=== PATIENT | female | born 2000 | race Caucasian/White ===

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

== ENCOUNTER 2019-02-03 07:50 | Emergency (ER) | payer SELFPAY ==
[~2019-02-03] VITALS: Wt 49.9 kg
--- NOTE | ~2019-02-03 | EKG ---
[place], [place] ELECTROCARDIOGRAM REPORT NAME: ERASMO GUAN UNIT #: [id number] ROOM: DOCTOR: DENNIS DRAFT REPORT BIRTHDATE: [birth year] [facility] Test Date: 2019-02-03 Test Time: 08:20:53 Pat Name: ERASMO GUAN Department: Room: Gender: F Manager Commodities: Diana Topete : 2000 Requested By: ELIZ BAKER Order Number: [id number] Reading MD: Alexandr Roque Measurements Intervals [place] Rate: 84 P: 72 MO: 125 QRS: 87 QRSD: 88 T: 40 QT: 333 QTc: 394 Interpretive Statements Sinus rhythm Baseline wander in lead(s) V4 Electronically Signed On 02-04-2019 9:30:50 PDT by Alexandr Roque CM:EKGRPT:ELECTROCARDIOGRAM REPORT 9 9 ELIZ KO DRAFT REPORT ELIZ BAKER DO
[~2019-02-03 07:50] MED LIST changes: +CEPHALEXIN500 M1 PO; +CIPRO250 MG PO; +SEPTDS PO
[2019-02-03 08:35] LABS: BASO % 0.2 % (0.0-1.0); EOS # 0.1 10*3/uL (0.0-0.4); EOS % 1.4 % (1.0-4.0); HEMATOCRIT 39.2 % (37.0-47.0); HEMOGLOBIN 12.4 g/dl (12.0-16.0); LYMPH # 1.2 10*3/uL (1.3-4.4); LYMPH % 12.6 % (27.0-41.0); MEAN CELL VOLUME 98.5 fl (81.0-99.0); MEAN CORPUSCULAR HGB 31.2 pg (27.0-31.0); MEAN CORPUSCULAR HGB CONC 31.6 g/dl (33.0-37.0); MEAN PLATELET VOLUME 8.7 fl (9.6-12.3); MONO # 0.6 10*3/uL (0.1-1.0); MONO % 6.8 % (3.0-9.0); NEUT # 7.2 10*3/uL (2.3-7.9); NEUT % 78.7 % (47.0-73.0); PLATELET COUNT AUTOMATED 296 10*3/uL (130-400); RED BLOOD COUNT 3.98 10*6/uL (4.10-5.10); RED CELL DISTRI WIDTH 13.6 % (0-14.5); WHITE BLOOD COUNT 9.1 10*3/uL (4.8-10.8)
[2019-02-03 08:44] LABS: ALBUMIN 3.6 gm/dl (3.1-4.5); ALKALINE PHOSPHATASE 63 U/L (45-117); BUN 8 mg/dl (7-24); CHLORIDE 100 mmol/L (98-107); CREATININE 0.79 mg/dL (0.55-1.02); LIPASE 75 U/L (73-393); POTASSIUM 3.4 mmol/L (3.5-5.1); SGOT/AST 21 IU/L (3-35); SGPT/ALT 17 U/L (12-78); SODIUM 138 mmol/L (136-145); TOTAL PROTEIN 8.2 gm/dL (6.4-8.2)
[2019-02-03 08:45] LABS: BETA-HCG, QUANT < 1.0 mIU/mL (1-3); TROPONIN I < 0.015 ng/ml (<0.045)
[2019-02-03] MEDS ORDERED: PREDNISONE50 MG PO (13:14)
== END 2019-02-03 13:38 | disposition home or self-care (01) ==
LOC: ED 07:50
PROVIDERS: Emergency Medicine
DX: R53.1 Weakness (principal); R20.0 Anesthesia of skin; R20.2 Paresthesia of skin; R79.1 Abnormal coagulation profile; G43.909 Migraine, unspecified, not intractable, without status migrainosus

== ENCOUNTER 2019-05-07 17:28 | Emergency (ER) | payer SELFPAY ==
[~2019-05-07] VITALS: Ht 165.1 cm; Wt 67.1 kg
--- NOTE | ~2019-05-07 | EKG ---
[place], [place] ELECTROCARDIOGRAM REPORT NAME: ERASMO GUAN UNIT #: [id number] ROOM: DOCTOR: EPIPHANY DRAFT REPORT BIRTHDATE: [birth year] [facility] Test Date: 2019-05-07 Test Time: 18:04:00 Pat Name: ERASMO GUAN Department: Room: Gender: F Dental Laboratory Technician: Mary Kc : 2000 Requested By: TOBIAS VASQUEZ Order Number: [id number] Reading MD: Alexandr Roque Measurements Intervals [place] Rate: 89 P: 79 GA: 117 QRS: 88 QRSD: 101 T: 29 QT: 441 QTc: 537 Interpretive Statements Sinus rhythm Borderline short GA interval ST depression, consider ischemia, diffuse lds Prolonged QT interval Compared to ECG 02/03/2019 08:20:53 ST (T wave) deviation now present Possible ischemia now present Prolonged QT interval now present Electronically Signed On 05-08-2019 8:02:56 PDT by Alexandr Roque CM:EKGRPT:ELECTROCARDIOGRAM REPORT [id number] TOBIAS COLLINS DRAFT REPORT TOBIAS VASQUEZ MD
[~2019-05-07 17:28] MED LIST changes: +PREDNISONE50 MG PO
--- NOTE | 2019-05-07 18:10 | NUR ---
PATIENT BROUGHT IN TO THE ER VIA AMBULANCE. DURING CPR PATIENT HAD NO SPO2 READING. NO CARDIAC RHYTHM, ACLS PROTOCOL STARTED. DURING THE CODE GASTRIC DISTENSION NOTED. PATIENT WAS EXTUBATED AND RE INTUBATED BY RESPIRATORY THERAPIST. TUBE PLACED AT 24CM AT THE LIP . CONFIRMED BY BILATERAL AUSCULTATION, AND CAPNOGRAPHY COLOR CHAGE. CHEST X RAY PENDING.
[2019-05-07 18:12] LABS: ABG HCO3 10.8 mmol/l (22-26); ARTERIAL BLOOD GAS PCO2 63.3 mmHg (35-45)
[2019-05-07 18:19] LABS: ABG BASE EXCESS -23.5 mmol/L (-2.0-2.0); ARTERIAL BLOOD GAS PH 6.845 (7.35-7.45)
[2019-05-07 18:27] LABS: HEMATOCRIT 35.3 % (37.0-47.0); HEMOGLOBIN 10.4 g/dl (12.0-16.0); MEAN CELL VOLUME 105.4 fl (81.0-99.0); MEAN CORPUSCULAR HGB CONC 29.5 g/dl (33.0-37.0); MEAN PLATELET VOLUME 9.5 fl (9.6-12.3); NUCLEATED RED BLOOD CELL 0.1 % (0.0-0.0); PLATELET COUNT AUTOMATED 271 10*3/uL (130-400); RED BLOOD COUNT 3.35 10*6/uL (4.10-5.10); RED CELL DISTRI WIDTH 15.9 % (0-14.5); WHITE BLOOD COUNT 18.8 10*3/uL (4.8-10.8)
[2019-05-07 18:44] LABS: ACT PARTIAL THROMBO TIME 37.9 SECONDS (20.0-32.1); INTERNATIONAL NORM RATIO 1.2 (2.0-3.5)
[2019-05-07 19:03] LABS: PLATELET SUFFICIENCY NORMAL (NORMAL); TOTAL CELLS COUNTED 100 #CELLS
[2019-05-07 19:04] LABS: BURR CELLS MODERATE; POLYCHROMASIA SLIGHT
[2019-05-07 19:10] LABS: ALBUMIN 2.4 gm/dl (3.1-4.5); ALKALINE PHOSPHATASE 76 U/L (45-117); BUN 15 mg/dl (7-24); CHLORIDE 111 mmol/L (98-107); CREATININE 1.59 mg/dL (0.55-1.02); POTASSIUM 5.5 mmol/L (3.5-5.1); SODIUM 146 mmol/L (136-145); TOTAL PROTEIN 4.8 gm/dL (6.4-8.2)
[2019-05-07 19:22] LABS: B-hCG (QUALITATIVE) NEGATIVE (NEGATIVE); SGOT/AST 3588 IU/L (3-35); SGPT/ALT 2870 U/L (12-78)
[2019-05-07 19:24] LABS: ACETAMINOPHEN (TYLENOL) < 5.0 ug/ml (10-30); ETHYL ALCOHOL < 3.0 mg/dl (<3); TROPONIN I 0.593 ng/ml (<0.045)
[2019-05-07 19:41] LABS: URINE AMPHETAMINES < 1000 (1000ng/ml); URINE BARBITURATES < 200 (200ng/ml); URINE BENZODIAZEPINES < 200 (200ng/ml); URINE CANNABINOIDS (THC) > 50 (50ng/ml); URINE COCAINE > 300 (300ng/ml); URINE METHADONE < 300 (300ng/ml); URINE OPIATES > 300 (300ng/ml)
[2019-05-07 19:45] LABS: URINE PHENCYCLIDINE < 25 (25ng/ml)
== END 2019-05-07 19:09 | disposition short-term general hospital (02) ==
LOC: ED 17:43
PROVIDERS: Emergency Medicine
DX: T50.901A Poisoning by unspecified drugs, medicaments and biological substances, accidental (unintentional), initial encounter (principal); I46.8 Cardiac arrest due to other underlying condition; G43.909 Migraine, unspecified, not intractable, without status migrainosus; Z79.899 Other long term (current) drug therapy; Y92.89 Other specified places as the place of occurrence of the external cause